=== PATIENT | male | born 1990 | race Caucasian/White ===

== ENCOUNTER → 2016-07-10 | Outpatient (CLI) | payer OTHER | END | disposition home or self-care (01) | LOC: C.PATHSPEC 18:03 | PROVIDERS: ATTEND Urology | DX: Z30.2 Encounter for sterilization (principal) ==

== ENCOUNTER → 2017-05-09 | Outpatient (CLI) | payer OTHER ==
[2017-05-09 12:32] LABS: ALT/SGPT 40 U/L (12-78); BLOOD UREA NITROGEN 11 mg/dl (7-18); BUN/CREATININE RATIO 10.9 (10-20); CALCIUM 9.3 mg/dl (8.5-10.1); CARBON DIOXIDE 30 mmol/L (21-32); CHLORIDE 102 mmol/L (98-107); CHOLESTEROL 242 mg/dl (0-200); CREATININE 1.04 mg/dl (0.60-1.40); GLUCOSE 88 mg/dl (70-99); POTASSIUM 3.9 mmol/L (3.5-5.1); SODIUM 136 mmol/L (136-145); TRIGLYCERIDES 202 mg/dl (0-150); VERY LOW DENSITY LIPOPROT CALC 40 mg/dl
[2017-05-09 12:35] LABS: ALB/GLOB RATIO 1.2 (0.9-2); ALKALINE PHOSPHATASE 93 U/L (45-117); AST/SGOT 26 U/L (15-37); CHOLESTEROL/HDL RATIO 6.1; HDL CHOLESTEROL 40 mg/dl; LDL CHOLESTEROL CALCULATED 162 mg/dl
== END | disposition home or self-care (01) ==
LOC: C.LABBFT 11:06
PROVIDERS: ATTEND Internal Medicine
DX: Z00.00 Encounter for general adult medical examination without abnormal findings (principal); Z13.220 Encounter for screening for lipoid disorders; Z13.1 Encounter for screening for diabetes mellitus

== ENCOUNTER 2017-05-26 21:23 | Emergency (ER) | payer OTHER ==
[~2017-05-26] VITALS: Ht 175.3 cm; Wt 107.0 kg
[2017-05-26 21:29] VITALS: TEMP 36.6; Ht 175.3 cm; Wt 107.0 kg
[2017-05-26] MEDS ORDERED: ESCI10TA17 PO (21:40)
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
[2017-05-26] MEDS ORDERED: TRAM-10 PO (22:28)
[2017-05-26] MEDS ORDERED: TRAMADOL HCL 50 MG HOME PACK PO ONE (22:30)
[2017-05-26 22:44] VITALS: BP 135/78; PULSE 73; O2SAT 96
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
== END 2017-05-26 22:35 | disposition home or self-care (01) ==
LOC: C.EDB 21:26 → C.EDD 22:35
DX: S40.212A Abrasion of left shoulder, initial encounter (principal); V17.4XXA Pedal cycle driver injured in collision with fixed or stationary object in traffic accident, initial encounter; Y93.55 Activity, bike riding; Y99.8 Other external cause status; Y92.39 Other specified sports and athletic area as the place of occurrence of the external cause; Z98.818 Other dental procedure status; Z98.52 Vasectomy status